=== PATIENT | female | born 1995 | race Caucasian/White ===

== ENCOUNTER 2020-11-30 10:36 | Outpatient (REF) | payer MEDICAID, SELFPAY ==
--- NOTE | 2020-11-30 07:20 | PAPFT_PTH ---
PATIENT: An Berumen LOC: [facility] U#:[id number] AGE/SX: 25/F ROOM: RE11/30/[address]: Sita Pozo APRN : 1995 BED: DIS: 11/30/2020 SPEC #: [id number] RECD: 11/30/20 13:15 STATUS: YARELI REMackenzie #: [id number] MAGNOLIA: 11/30/20 07:[address]: Sita Pozo DEPT: [facility] Cytology RECD BY: Catrina Garg Tissues: 1 - CX/ENDOCX FOR PAP SMEARS Procedures: PAP THIN PREP/UVM Screening Comments: [id number]
== END 2020-11-30 10:37 | disposition home or self-care (01) ==
LOC: LBN 10:36
DX: Z12.4 Encounter for screening for malignant neoplasm of cervix (principal)
CPT/HCPCS: 88142

== ENCOUNTER 2021-05-01 08:57 | Outpatient (CLI) | payer MEDICAID, SELFPAY ==
[2021-05-01 13:22] LABS: ALT 82 U/L (14-59); AST 30 U/L (15-37); Albumin 4.2 g/dL (3.4-5.0); Alkaline Phosphatase 111 U/L (46-116); Anion Gap 9.2 mmol/L (3-11); BUN 9 mg/dL (7-18); Bilirubin, Total 0.5 mg/dL (0.2-1.0); CO2 27.8 mmol/L (21.0-32.0); CREATININE 0.9 mg/dL (0.55-1.02); Calcium 9.1 mg/dL (8.5-10.1); Calculated LDL 133 mg/dL (<100); Chloride 105 mmol/L (98-107); Cholesterol 195 mg/dL (<200); Glucose 94 mg/dL (74-106); HDL Cholesterol 42 mg/dL (40-60); Potassium 4.4 mmol/L (3.5-5.1); Sodium 142 mmol/L (136-145); TSH (W/Ref FT4) 1.87 uIU/mL (0.36-3.74); Total Protein 6.9 g/dL (6.4-8.2); Triglyceride 101 mg/dL (<150)
== END 2021-05-01 08:58 | disposition home or self-care (01) ==
LOC: LOS 08:59
DX: Z13.220 Encounter for screening for lipoid disorders (principal); R53.83 Other fatigue; F41.8 Other specified anxiety disorders; G47.00 Insomnia, unspecified; R63.8 Other symptoms and signs concerning food and fluid intake
CPT/HCPCS: 36415; 80053; 80061; 84443

== ENCOUNTER 2021-08-14 13:12 | Outpatient (REF) | payer MEDICAID, SELFPAY ==
[2021-08-16 15:01] LABS: COVID-19 RT-PCR UVMMC Result Negative (Negative)
== END 2021-08-14 13:13 | disposition home or self-care (01) ==
LOC: LBN 13:12
DX: Z20.822 Contact with and (suspected) exposure to COVID-19 (principal); R06.02 Shortness of breath
CPT/HCPCS: U0003

== ENCOUNTER 2023-05-12 12:29 | Outpatient (REF) | payer MEDICAID, SELFPAY ==
[2023-05-12 16:58] LABS: ALT 25 U/L (14-59); AST 17 U/L (15-37); Albumin 3.8 g/dL (3.4-5.0); Alkaline Phosphatase 112 U/L (46-116); BUN 10 mg/dL (7-18); Bilirubin, Total 0.5 mg/dL (0.2-1.0); CREATININE 0.8 mg/dL (0.55-1.02); Calcium 8.9 mg/dL (8.5-10.1); Chloride 105 mmol/L (98-107); Glucose 100 mg/dL (74-106); Magnesium 2.1 mg/dL (1.8-2.4); Potassium 4.6 mmol/L (3.5-5.1); Sodium 140 mmol/L (136-145); TSH 2.06 uIU/mL (0.36-3.74); Total Protein 7.3 g/dL (6.4-8.2)
[2023-05-12 18:59] LABS: HGB 14.1 g/dL (11.2-15.7); MCH 28.1 pg (27.0-33.0); MCHC 33.6 % (32.0-36.0); MCV 84 fL (80-95); Platelet Count 293 10^3/uL (130-400); RBC 5.01 10^6/uL (3.93-5.22); RDW 12.1 % (11.7-14.6); RDW-SD 36.7 fL; WBC 6.87 10^3/uL (4.4-10.8)
[2023-05-12 19:38] LABS: Hemoglobin A1C 5.1 % (<5.7)
[2023-05-12 20:18] LABS: Vitamin D 25 Total 12.3 ng/mL (30-100)
== END 2023-05-12 12:30 | disposition home or self-care (01) ==
LOC: NCHCN 12:29
PROVIDERS: Visit Provider Nurse Practitioner Family
DX: G47.00 Insomnia, unspecified (principal); F41.8 Other specified anxiety disorders
CPT/HCPCS: 80053; 82306; 85027; 83036; 83735; 84443

== ENCOUNTER → 2023-12-01 10:39 | Outpatient (CLI) | payer MEDICAID, SELFPAY ==
--- OUTSIDE RECORDS SUMMARY | 2023-12-01 10:55 | XMS_ITS | Continuity of Care Document ---
Author Name Unknown Organization [facility] Ambulatory Clinics Address [address] [place] [address] Encounter [facility] FIN NBR [id number] Date(s): 09/21/22 - 09/21/22 [facility] Ambulatory Clinics [address] [place], [place] [id number] Encounter Diagnosis Pain due to dental caries(Discharge Diagnosis) - 09/21/22 Discharge Disposition: Home or Self Care Attending Physician: Nehemias Shafer. PA Allergies, Adverse Reactions, Alerts Substance Reaction Severity Status sulfa drugs Unknown Active Functional Status 09/21/22 Other exposure to Infectious Disease Non e Medications !-Augmentin 875 mg-125 mg oral tablet 1 tab, Oral, every 12 hr, # 20 tab, 0 Refill(s), Pharmacy: [id number] Start Date: 09/21/22 Stop Date: 10/01/22 Status: Ordered hydrOXYzine hydrochloride 25 mg oral tablet 25 mg = 1 tab, Oral, Daily, # 30 tab, 0 Refill(s) Start Date: 09/21/22 Status: Ordered Vital Signs Most recent to oldest [Reference Range]: 1 Temperature Tympanic [36.6-37.9 Deg C] 3 5.5 Deg C *LOW* (09/21/22 9:22 AM) Peripheral Pulse Rate [60-100 bpm] 69 bp m (09/21/22 9:22 AM) Blood Pressure [90-140/60-90 mmHg] 133/8 6mmHg (09/21/22 9:22 AM) Weight 118 kg (09/21/22 9:22 AM) Weight Measured (lbs) 260.145 lb (09/21/22 9:22 AM) Height 159 cm (09/21/22 9:22 AM) Height/Length Measured (inches) 62.6 inc h (09/21/22 9:22 AM) BSA Measured 2.28 m2 (09/21/22 9:22 AM) Body Mass Index 46.68 kg/m2 (09/21/22 9:22 AM) Social History Social History Type Response Tobacco Former tobacco user Tobacco Use:. Sex Hospital Discharge Instructions Patient Education 09/21/2022 09:24:30 Dental Pain, Gema-lu-Yqjv Dental Pain Dental pain is often a sign that something is wrong with your teeth or gums. You can also have painafter a dental treatment. If you have dental pain, it is important to contact your dentist, especially if the cause of the pain is not known. Dental pain may hurt a lot or a little and can be caused by many things, including: ??? Tooth decay (cavities or caries). ??? Infection. ??? The inner part of the tooth being filled with pus (an abscess). ??? Injury. ??? A crack in the tooth. ??? Gums that move back and expose the root of a tooth. ??? Gum disease. ??? Abnormal grinding or clenching of teeth. ??? Not taking good care of your teeth. Sometimes the cause of pain is not known. You may have pain all the time, or it may happen only when you are: ??? Chewing. ??? Exposed to hot or cold temperatures. ??? Eating or drinking foods or drinks that have a lot of sugar in them, such as soda or candy. Follow these instructions at home: Medicines ??? Take dvrn-gqn-eicjfuh and prescription medicines only as told by your dentist. ??? If you were prescribed an antibiotic medicine, take it as told by your dentist. Do not stop taking it even if you start to feel better. Eating and drinking Do not eat foods or drinks that cause you pain. These include: ??? Very hot or very cold foods or drinks. ??? Sweet or sugary foods or drinks. Managing pain and swelling ??? If told, put ice on the painful area of your face. To do this: ??? Put ice in a plastic bag. ??? Place a towel between your skin and the bag. ??? Leave the ice on for 20 minutes, 2???3 times a day. ??? Take off the ice if your skin turns bright red. This is very important. If you cannot feel pain, heat, or cold, you have a greater risk of damage to the area. Brushing your teeth ??? Erie your teeth twice a day using a fluoride toothpaste. ??? Use a toothpaste made for sensitive teeth as told by your dentist. ??? Use a soft toothbrush. General instructions ??? Floss your teeth at least once a day. ??? Do not put heat on the outside of your face. ??? Rinse your mouth often with salt water. To make salt water, dissolve ?1 tsp (3???6 g) of salt in 1 cup (237 mL) of warm water. ??? Watch your dental pain. Let your dentist know if there are any changes. ??? Keep all follow-up visits. Contact a dentist if: ??? You have dental pain and you do not know why. ??? Medicine does not help your pain. ??? Your symptoms get worse. ??? You have new symptoms. Get help right away if: ??? You cannot open your mouth. ??? You are having trouble breathing or swallowing. ??? You have a fever. ??? Your face, neck, or jaw is swollen. These symptoms may be an emergency. Get help right away. Call your local emergency services (911 int [place] ??? Do not wait to see if the symptoms will go away. ??? Do not drive yourself to the hospital. Summary ??? Dental pain may be caused by many things, including tooth decay, injury, or infection. In some cases, the cause is not known. ??? Dental pain may hurt a lot or very little. You may have pain all the time, or you may have it only when you eat or drink. ??? Take clvj-fdp-orsufdc and prescription medicines only as told by your dentist. ??? Watch your dental pain for any changes. Let your dentist know if symptoms get worse. This information is not intended to replace advice given to you by your health care provider. Make sure you discuss any questions you have with your health care provider. Document Revised: 07/04/2021 Document Reviewed: 07/04/2021 [employer] Patient Education ?? 2021 [employer] Physician Outpatient Note * Nehemias Shafer. PA: PERFORM Event Display: Office Clinic Note Physician Authored Date: [id number] GIOVANA MEDINA :1995 Age:27 years Sex:Female Visit Date:09/21/2022 Chief Complaint patient c/o tooth pain from broken tooth on left lower molar. History of Present Illness Patient had a filling fall out of her left lower first molar several months ago. ??Intermittent pain worse over the past week.?? Has been trying rhkh-fus-kbiqthv ibuprofen/Tylenol. ??Difficulty getting into see dentistry. ??No difficulty swallowing. ??No neck pain. Physical Exam Vitals & Measurements T:??35.5?C ??(Tympanic)?? HR:??69??(Peripheral)?? BP:??133/86?? HT:??159??cm?? WT:??118??kg?? BMI:??46.68?? Pain Score:??10?? BSA:??2.28?? Well-appearing no acute distress examination of the intraoral cavity shows a missing filling??left lower first molar.?? There is a??mild gingival redness no abscess or drainage.?? Airway widely patent. ??No submandibular tenderness. Assessment/Plan 1.??Pain due to dental caries??K02.9 A temporary filling was placed. ??Started on antibiotics. ??Follow-up with dentistry. ??Patient agreeable. Ordered: !-Augmentin 875 mg-125 mg oral tablet, 1 tab, Oral, every 12 hr, # 20 tab, 0 Refill(s), Pharmacy: [id number] ?? Patient Instructions Follow up with dentist Patient Education Dental Pain, [place] Problem List/Past Medical History Ongoing Morbid obesity Historical No qualifying data Medications !-Augmentin 875 mg-125 mg oral tablet, 1 tab, Oral, every 12 hr hydrOXYzine hydrochloride 25 mg oral tablet, 25 mg= 1 tab, Oral, Daily Allergies sulfa drugs Social History Electronic Cigarette/Vaping Electronic Cigarette Use: Never. Tobacco Former tobacco user Tobacco Use:. Electronically Signed on 09/21/22 10:26 AM Nehemias MURRAY Outpatient Summary note * Nehemias Shafer. TREVOR: PERFORM Event Display: Ambulatory Patient Summary Authored Date: [id number] GIOVANA MEDINA :1995 Age:27 years Sex:Female Visit Date:09/21/2022 Ambulatory Visit Instructions We would like to thank you for allowing us to assist you with your healthcare needs. The following includes patient education materials and information regarding your injury/illness. After you leave the office, you may get your health information including your test results, physician notes and discharge information by accessing your Patient Portal. If you do not have a patient portal account set up, please contact __. Your Next Steps Instructions From Your Care Team Follow up with dentist Medications What How Much When Why Instructions New amoxicillin-clavulanate (!-Augmentin 875 mg-125 mg oral tablet) 1 tab Oral (given by mouth) Every 12 hours Pain due to dental caries Duration: 10 Days Pickup at [facility] Unchanged hydrOXYzine (hydrOXYzine hydrochloride 25 mg oral tablet) 1 tab Oral (given by mouth) Every day Pharmacy Information [facility]: [address] [place] [phone] Your Summary Your Diagnosis Pain due to dental caries Your Care Team Attending Physician - Nehemias Shafer. TREVOR Allergies sulfa drugs Education Materials Dental Pain Dental pain is often a sign that something is wrong with your teeth or gums. You can also have painafter a dental treatment. If you have dental pain, it is important to contact your dentist, especially if the cause of the pain is not known. Dental pain may hurt a lot or a little and can be caused by many things, including: ? Tooth decay (cavities or caries). ? Infection. ? The inner part of the tooth being filled with pus (an abscess). ? Injury. ? A crack in the tooth. ? Gums that move back and expose the root of a tooth. ? Gum disease. ? Abnormal grinding or clenching of teeth. ? Not taking good care of your teeth. Sometimes the cause of pain is not known. You may have pain all the time, or it may happen only when you are: ? Chewing. ? Exposed to hot or cold temperatures. ? Eating or drinking foods or drinks that have a lot of sugar in them, such as soda or candy. Follow these instructions at home: Medicines ? Take peib-dnv-lfxitue and prescription medicines only as told by your dentist. ? If you were prescribed an antibiotic medicine, take it as told by your dentist. Do not stop taking it even if you start to feel better. Eating and drinking Do not eat foods or drinks that cause you pain. These include: ? Very hot or very cold foods or drinks. ? Sweet or sugary foods or drinks. Managing pain and swelling ? If told, put ice on the painful area of your face. To do this: ? Put ice in a plastic bag. ? Place a towel between your skin and the bag. ? Leave the ice on for 20 minutes, 2???3 times a day. ? Take off the ice if your skin turns bright red. This is very important. If you cannot feel pain, heat, or cold, you have a greater risk of damage to the area. Brushing your teeth ? Erie your teeth twice a day using a fluoride toothpaste. ? Use a toothpaste made for sensitive teeth as told by your dentist. ? Use a soft toothbrush. General instructions ? Floss your teeth at least once a day. ? Do not put heat on the outside of your face. ? Rinse your mouth often with salt water. To make salt water, dissolve ?1 tsp (3???6 g) of salt in 1 cup (237 mL) of warm water. ? Watch your dental pain. Let your dentist know if there are any changes. ? Keep all follow-up visits. Contact a dentist if: ? You have dental pain and you do not know why. ? Medicine does not help your pain. ? Your symptoms get worse. ? You have new symptoms. Get help right away if: ? You cannot open your mouth. ? You are having trouble breathing or swallowing. ? You have a fever. ? Your face, neck, or jaw is swollen. These symptoms may be an emergency. Get help right away. Call your local emergency services (911 [facility] [place] ? Do not wait to see if the symptoms will go away. ? Do not drive yourself to the hospital. Summary ? Dental pain may be caused by many things, including tooth decay, injury, or infection. In some cases, the cause is not known. ? Dental pain may hurt a lot or very little. You may have pain all the time, or you may have it only when you eat or drink. ? Take fvcd-skj-sfggsar and prescription medicines only as told by your dentist. ? Watch your dental pain for any changes. Let your dentist know if symptoms get worse. This information is not intended to replace advice given to you by your health care provider. Make sure you discuss any questions you have with your health care provider. Document Revised: 07/04/2021 Document Reviewed: 07/04/2021 [employer] Patient Education ?? 2021 [employer] Electronically Signed on: 09/21/2022 10:26 ESTSigned by:JAKE
--- NOTE | 2023-12-01 11:10 | DI.RAD_ITS ---
Exam(s) XR THUMB LT EXAM: XR THUMB LT EXAM DATE/TIME: CLINICAL HISTORY: Pain in left thumb, M79.645. TECHNIQUE: 2D digital imaging was performed of the left finger. Three views were obtained. PA/AP, oblique, and lateral views were obtained. COMPARISON: None. FINDINGS: BONES: No acute fracture is present. No bony destructive lesion is seen. JOINTS: No dislocation is present. SOFT TISSUE: Normal. IMPRESSION: No evidence of acute fracture or dislocation. DATA REPOSITORY: RADIATION DOSE DELIVERED:
== END ==
PROVIDERS: Visit Provider Nurse Practitioner Family
DX: M79.645 Pain in left finger(s) (principal)
CPT/HCPCS: 73140

== ENCOUNTER 2024-09-03 12:45 | Outpatient (REF) | payer MEDICAID, SELFPAY ==
[2024-09-03 15:13] LABS: ESR 18 mm/hr (0-20)
[2024-09-03 15:59] LABS: TSH (W/Ref FT4) 6.18 uIU/mL (0.36-3.74)
[2024-09-03 16:00] LABS: C-Reactive Protein < 0.50 mg/dL (<or=0.5)
[2024-09-03 16:22] LABS: FREE T4 0.85 ng/dL (0.76-1.46)
[2024-09-03 21:32] LABS: Rheumatoid Factor <8.6 IU/mL (<12.0)
[2024-09-06 13:57] LABS: ANA Interpretation Positive (Negative)
[2024-09-06 21:34] LABS: T3,Free 4.3 pg/mL (2.8-5.3)
[2024-09-07 09:49] LABS: Lyme Ab w Rflx to Lyme Confirm Negative (Negative)
[2024-09-09 16:14] LABS: Anaplasma phagocytophilum Negative (Negative); B. miyamotoi PCR Negative (Negative); Babesia divergens/MO-1 Negative (Negative); Babesia duncani Negative (Negative); Babesia microti Negative (Negative); Ehrlichia chaffeensis Negative (Negative); Ehrlichia ewingii/canis Negative (Negative); Ehrlichia muris eauclairensis Negative (Negative)
== END 2024-09-03 12:46 | disposition home or self-care (01) ==
LOC: NCHCN 12:45
PROVIDERS: PCP Nurse Practitioner Family; Visit Provider Nurse Practitioner Family
DX: L65.9 Nonscarring hair loss, unspecified (principal); M25.59 Pain in other specified joint
CPT/HCPCS: 85652; 87798; 84439; 84443; 84481; 86038; 86140; 86431; 86618

== ENCOUNTER 2024-11-03 00:52 | Outpatient (CLI) | payer MEDICAID, SELFPAY ==
--- NOTE | 2024-11-03 | DI.RAD_ITS ---
Exam(s) XR HAND LT COMPLETE EXAM: XR HAND LT COMPLETE CLINICAL HISTORY: M79.642 Pain in left hand. TECHNIQUE: 2D digital imaging was performed. Three views. COMPARISON: CR XR THUMB LT from 12/01/2023 CR XR HAND RT COMPLETE from 11/03/2024 FINDINGS: BONES: No acute fracture is present. No bony destructive lesion is seen. Chronic appearing lucency in the distal phalanx of the thumb. JOINTS: No dislocation present. Joint spaces are maintained. No significant degenerative changes. SOFT TISSUE: Normal. IMPRESSION: Unremarkable radiographs of the left hand. DATA REPOSITORY: RADIATION DOSE DELIVERED:
--- NOTE | 2024-11-03 | DI.RAD_ITS ---
Exam(s) XR HAND RT COMPLETE EXAM: XR HAND RT COMPLETE CLINICAL HISTORY: M79.641 Pain Right hand. TECHNIQUE: 2D digital imaging was performed. Three views. COMPARISON: CR XR THUMB LT from 12/01/2023 FINDINGS: BONES: No acute fracture is present. No bony destructive lesion is seen. JOINTS: No dislocation present. No significant degenerative changes. SOFT TISSUE: Normal. IMPRESSION: Unremarkable radiographs of the right hand. DATA REPOSITORY: RADIATION DOSE DELIVERED:
== END 2024-11-03 01:12 ==
LOC: DI 00:52
PROVIDERS: Visit Provider Nurse Practitioner Family
DX: M79.641 Pain in right hand (principal); M79.642 Pain in left hand
CPT/HCPCS: 73130

== ENCOUNTER 2024-12-01 06:15 | Day surgery (SDC) | payer MEDICAID, SELFPAY ==
[2024-12-01 06:45] VITALS: BP 149/101; PULSE 87; RESP 18; TEMP 37; O2SAT 100
[2024-12-01] MEDS: Acetaminophen 500 MG TAB 1000 MG PO (07:04)
[2024-12-01] MEDS: Celecoxib 200 MG CAP 400 MG PO (07:04)
[2024-12-01] MEDS: Lactated Ringers 1,000 ML 80 ML IV (07:05)
--- NOTE | 2024-12-01 07:08 | W.ANESPRE ---
General Info Date of Service Date Performed: 12/01/24 Height: 5 ft 3 in Weight: 115.4 kg Body Mass Index (BMI): 45.1 Surgical Procedure: Operation Date: 12/01/24 07:40 Proposed Procedure Side Surgeon p Wrist ECTR Right Jacob Vickers MD Pre-Op Diagnosis Post-Op Diagnosis Right carpal tunnel syndrome Meds Allergies and Home Medications Allergies Allergy/AdvReac Type Severity Reaction Status Date / Time Sulfa (Sulfonamide Allergy Unknown Other (See Verified 12/01/24 06:50 Antibiotics) Comment) zolpidem Allergy Visual Verified 12/01/24 06:50 Disturbances Home Medication ?Medication ?Instructions ?Recorded Unknown [No Known Home Meds] 11/11/24 Current Visit Medications: Current Medications Generic Name Dose Route Start Last Admin Trade Name Freq PRN Reason Stop Dose Admin Acetaminophen 1,000 mg 12/01/24 06:00 12/01/24 07:04 Acetaminophen 500 Mg Tab PO 12/01/24 23:59 1,000 mg PREOP JENNY Administration Celecoxib 400 mg 12/01/24 06:00 12/01/24 07:04 Celecoxib 200 Mg Cap PO 12/01/24 23:59 400 mg PREOP JENNY Administration Ringer's Solution 1,000 mls @ 80 mls/hr 12/01/24 06:00 12/01/24 07:05 IV 12/01/24 23:59 80 mls/hr INFUSION JENNY Administration Cefazolin Sodium/Dextrose 2 gm in 50 mls @ 100 mls/hr 12/01/24 06:00 Ancef Duplex IVPB 12/01/24 23:59 PREOP JENNY IV Miscellaneous Supplies 1 each 12/01/24 06:00 Iv Access IV 12/01/24 23:59 DIRECTED JENNY Sodium Chloride 0 ml 12/01/24 06:00 Normal Saline Flush 10 Ml Syr IV 12/01/24 23:59 PRN PRN Sodium Chloride 0 ml 12/01/24 06:00 Normal Saline 10 Ml Vial IJ 12/01/24 23:59 DIRECTED PRN Sterile Water 0 ml 12/01/24 06:00 Water,Injection,Sterile 10 Ml Vial IJ 12/01/24 23:59 DIRECTED PRN PFSH Active Problems Active Problems: Problem Status Onset Code Trigger finger, left ring finger Acute M65.342 Trigger finger, right ring finger Acute M65.341 Left thumb sprain Acute S63.602A Right carpal tunnel syndrome Acute G56.01 Pharyngitis Acute J02.9 Otitis media not resolved Acute H66.90 Fatigue Acute R53.83 Insomnia disorder Acute G47.00 Increased body mass index (BMI) Acute R63.8 Mixed anxiety depressive disorder Acute F41.8 Medical History Medical History Chlamydia (~2015) Surgical History Surgical History H/O wrist surgery (~2014) H/O dilation and curettage S/P tonsillectomy Tobacco Smoking/Tobacco Use Status: Never Passive smoking exposure: Yes Second hand exposure: Yes Alcohol Alcohol Intake: never Substance Use Substance use: Rarely Substance use type: marijuana Counseling provided: none Vital Signs and Lab Results Vital Signs Most Recent Vital Signs in EMR: Most Recent Vital Signs Temp Pulse Resp BP Pulse Ox 37 C 87 18 149/101 H 100 12/01/24 06:45 12/01/24 06:45 12/01/24 06:45 12/01/24 06:45 12/01/24 06:45 Point of Care Results Point of Care Results: POC- Test(urine) Negative 12/01/24 07:03 Lab Results Blood Type / Crossmatch: No Data to Display Complete Blood Count: No Data to Display Complete Metabolic Panel: No Data to Display Liver Function Panel: No Data to Display Coagulation Panel: No Data to Display Cardiac Panel: No Data to Display Arterial Blood Gas: No Data to Display Venous Blood Gas: No Data to Display Pancreas Panel: No Data to Display Thyroid Panel: No Data to Display Infectious Disease: No Data to Display Blood Cultures: No Data to Display Toxicology Panel: No Data to Display Panel: No Data to Display Anesthesia Assessment and Plan Anesthesia History Personal History: No History of Anesthesia Complications Family History: No Family History of Anesthesia Complications Exercise Tolerance Exercise Tolerance: Metabolic Equivalents>4 Pertinent Negatives Pertinent Negatives: No Symptoms of GERD Cardiac & Pulmonary Exam Cardiac Exam: Normal S1/S2 Heart Sounds Pulmonary Exam: Clear Bilateral Breath Sounds Implantable Cardiac Device Does patient have a Pacemaker or an ICD?: No Airway Exam Known Difficult Airway: No Mallampati Class: 2 Mouth Opening: Normal (> 3cm) Thyromental Distance: Greater than 3 cm Neck Range of Motion: Full ROM Neck Circumference: Normal Teeth Condition: Normal Dentition ASA Classification ASA Score: ASA 3 Emergency Case?: No NPO Status NPO Status: NPO Clears >2 hours, Solids >8 hours Status Status: Negative HCG Anesthesia Plan Resuscitation Status: Full Code Anesthesia Technique: General Anesthesia Airway Planned: Natural Airway Monitors Used: Standard Monitors
--- NOTE | 2024-12-01 07:09 | W.PM.DSUDISC ---
Date of service: 12/01/24 Discharge Plan Disposition Patient Disposition: Home Condition: Good Discharge Details Reason For Visit: Right carpal tunnel syndrome Attending Provider: Jacob Vickers Primary Care Provider: Leyla Martinez Home Meds and New Rx's Prescriptions: New hydrocodone-acetaminophen 5-325 mg tablet 1 tab PO Q6H PRN (Reason: severe pain) Qty: 4 0RF Rx Instructions: Take one tablet up to every 6 hours as needed for severe postoperative pain Discharge Instructions Stand Alone Forms: [place] Tunnel Release Referrals: Jacob Vickers MD [ [facility] STAFF PHYSICIAN] - Activity:: Elevate Remove Dressings/Wound Care:: 48 hours Shower/Bathe:: 48 hours Diet:: As Tolerated Discharge Orders Discharge Orders: Discharge Order (Routine); Ordered 12/01/24 Ordered By: Renee Marks
[2024-12-01 07:14] VITALS: BMI 45.1
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
[2024-12-01] MEDS: ceFAZolin 2 GM/50 ML BAG IVPB (07:25)
[2024-12-01] MEDS: Lidocaine 1% Multi-Dose W/EPI 1/100,000 50 ML VIAL (07:42)
--- NOTE | 2024-12-01 07:48 | W.PM.OP ---
Operative Note Operative Note PRE-OP DIAGNOSIS: Right Carpal Tunnel Syndrome POST-OP DIAGNOSIS: same PROCEDURE: Right Endoscopic Carpal Tunnel Release SURGEON: Jacob Vickers ANESTHESIA TYPE: General:No Airway Refer to Anesthesia Record ESTIMATED BLOOD LOSS: 0 PATHOLOGY: none sent TOURNIQUET TIME: 5 COMPLICATIONS: None Patient was transported to: same day Patient's condition: stable Indications: I have seen An in clinic for symptoms of carpal tunnel syndrome. The numbness, tingling, and pain limited function. Clinical exam findings confirmed the diagnosis of carpal tunnel syndrome. Nonoperative measures such as bracing, time, activity modifications had been tried but disability and pain persisted. I discussed carpal tunnel release with the patient. I reviewed the risks of the procedure to include, but not limited to, bleeding, infection, pain, stiffness, incomplete release, damage to nerves or vessels, persistent numbness, recurrence. Despite these risks, the patient elected to proceed. Findings: There was tightened carpal tunnel. This was dilated and released successfully with the endoscopic with increased space within the tunnel. The antebrachial fascia was released proximally freeing the median nerve at the wrist. Procedure Description: An was greeted in the preoperative holding area where the correct side was identified and marked. The consent was reviewed with the patient and signed. The history and physical was updated. All questions were answered. She was taken back to the operating room. The patient was placed into the supine position on the operating room table with the right arm on an arm board. A nonsterile tourniquet was placed high onto the arm. All bony prominences were well padded. Prophylactic antibiotics in the form of Cefazolin were administered. The right arm was then prepped with Chloraprep and draped in a standard fashion with stockinette and extremity drape. A timeout to confirm correct identity, side and site, procedure, allergies, anesthesia, and medical concerns was performed. The surgical site was marked in the volar wrist creases in line with the radial border of the fourth ray. This area was anesthetized with approximately 6cc of 1% Lidocaine. The limb was then exsanguinated with an Esmarch. The skin was incised with a 15 blade, approximately 1cm. The skin only was cut and the deeper tissue was dissected bluntly with a tenotomy scissor, avoiding passing nerve and venous structures. The fascia was penetrated and opened bluntly. A two-prong skin hook was placed under this proximal fascial edge. A series of hamate finders were used to identify and dilate the carpal tunnel. Synovial elevator was used to free synovial attachments to the underside of the transverse carpal ligament. My thumb was kept in the palm to charles the distal extent of the carpal tunnel and correctly position the hand. The Microaire endoscope was inserted without difficulty and without resistance. Excellent visualization showed horizontally running fibers of the transverse carpal ligament (TCL). The distal extent of the TCL was visualized and the end of the scope palpated with the thumb. The blade was elevated and withdrawn from distal to proximal. The TCL was split into two flaps. The endoscope was reinserted to confirm complete release and any remnant ligament was incised. The scope was withdrawn and the proximal aspect of the carpal tunnel was grossly inspected and appeared release with the median nerve visible. The antebrachial fascia at the level of the wrist was then freed from the overlying skin and then the underlying median nerve with blunt dissection. This was transected longitudinally for about 3cm proximal to the wrist incision. The wound was then irrigated with easy flow of irrigant distally and proximally. The incision was closed with a single 4-0 Nylon suture. The wound was dressed with Xeroform, Gauze, Kerlix and Pete. The tourniquet was deflated with the initial dressing and held with some pressure. Blood flow returned easily to all digits with capillary refill less than 2 seconds. The patient tolerated the procedure well and was returned to the Same Day Surgery area in a stable condition suffering no known complication. Date of Procedure: 12/01/24
[2024-12-01 07:50] VITALS: BP 141/94; PULSE 97; RESP 14; TEMP 36.5; O2SAT 95
[2024-12-01 08:05] VITALS: BP 146/93; PULSE 76; RESP 16; TEMP 36.4; O2SAT 99
--- NOTE | 2024-12-01 08:43 | W.ANESPOSTOP ---
Postoperative Evaluation Date, Time and Location Date Performed: 12/01/24 Time Performed: 08:30 Patient Location: Day Surgery Unit Vital Signs Most Recent Imported Vital Signs: Most Recent Vital Signs Temp Pulse Resp BP Pulse Ox 36.4 C L 76 16 146/93 H 99 12/01/24 08:05 12/01/24 08:05 12/01/24 08:05 12/01/24 08:05 12/01/24 08:05 Pain Score Most Recent Pain Score: Most Recent Pain Score Pain Level 0 12/01/24 08:05 Assessment Mental Status: Awake (Alert & Oriented to Patient Baseline) Airway and Respiratory Function: Patent airway with normal (patient baseline) respiratory exam Cardiovascular Function: Hemodynamically Stable Hydration Status: Adequately Hydrated Nausea & Vomiting: No Nausea or Vomiting Pain: Pt. Denies Any Pain Peripheral Nerve Block: Patient did not receive a nerve block
== END 2024-12-01 08:43 | disposition home or self-care (01) ==
LOC: SUR 08:52
PROVIDERS: PCP Nurse Practitioner Family; Visit Provider Student in an Organized Health Care Education/Training Program
PROC: 01N54ZZ Release Median Nerve, Percutaneous Endoscopic Approach (ICD-10-PCS; CPT 29848; principal; 2024-12-01 07:30)
DX: G56.01 Carpal tunnel syndrome, right upper limb (principal)
CPT/HCPCS: 29848; J0690; J2004; J2250; J2405; J2704

== ENCOUNTER 2025-06-23 14:45 | Outpatient (REF) | payer MEDICAID, SELFPAY ==
--- NOTE | 2025-06-23 11:15 | PAPFT_PTH ---
PATIENT: An Berumen LOC: [facility]#:[id number] AGE/SX: 29/F ROOM: RE06/23/[address]: Leyla Martinez : 1995 BED: DIS: 06/23/2025 SPEC #: [id number] RECD: 06/23/25 18:21 STATUS: YARELI REMackenzie #: [id number] MAGNOLIA: 06/23/25 11:[address]: Leyla Martinez DEPT: [facility] Cytology RECD BY: Catrina Garg Tissues: 1 - CX/ENDOCX FOR PAP SMEARS Procedures: PAP THIN PREP/[facility] Screening Comments: [id number]
[2025-06-23 18:39] LABS: TSH 3.12 uIU/mL (0.36-3.74); Vitamin D 25 Total 16 ng/mL (30-100)
[2025-06-23 22:01] LABS: T3,Free 4.5 pg/mL (2.8-5.3)
[2025-06-24 10:15] LABS: Hepatitis C Ab w Rflx HCV PCR Negative (Negative)
[2025-06-24 10:21] LABS: HIV-1/2 Ag & Ab Screen Negative (Negative)
[2025-06-24 11:22] LABS: RNP Ab, IgG <6.0 CU (<20.0)
[2025-06-24 13:20] LABS: Syphilis Serology (RPR) Negative (Negative)
[2025-06-27 11:42] LABS: JO 1 Ab, IgG <0.2 U; Sm (Smith) Ab, IgG <0.2 U
== END 2025-06-23 14:46 | disposition home or self-care (01) ==
LOC: NCHCN 14:45
PROVIDERS: PCP Nurse Practitioner Family; Visit Provider Nurse Practitioner Family
DX: Z12.4 Encounter for screening for malignant neoplasm of cervix (principal); Z01.419 Encounter for gynecological examination (general) (routine) without abnormal findings; Z11.4 Encounter for screening for human immunodeficiency virus [HIV]; Z11.59 Encounter for screening for other viral diseases; R76.8 Other specified abnormal immunological findings in serum; R79.89 Other specified abnormal findings of blood chemistry; E55.9 Vitamin D deficiency, unspecified
CPT/HCPCS: 82306; 86200; 86803; 87389; 88142; 84439; 84443; 84481; 86225; 86235; 86592